=== PATIENT | female | born 2000 | race Caucasian/White ===

== ENCOUNTER → 2019-09-12 | Outpatient (CLI) | payer OTHER | END | disposition home or self-care (01) | LOC: TOM 16:08 | PROVIDERS: ATTEND Radiology Diagnostic Radiology | DX: R10.2 Pelvic and perineal pain (principal) ==

== ENCOUNTER 2021-05-26 12:03 | Outpatient (CLI) | payer OTHER | END 2021-05-26 12:20 | disposition home or self-care (01) | LOC: TOM 12:03 | PROVIDERS: ATTEND Obstetrics & Gynecology | DX: N83.291 Other ovarian cyst, right side (principal); N20.2 Calculus of kidney with calculus of ureter ==